=== PATIENT | male | born 1955 | race Caucasian/White ===

== ENCOUNTER → 2019-08-15 15:25 | Outpatient (CLI) | payer MEDICARE ==
[~2019-08-15 15:25] MED LIST: COZAAR50 MG PO; GENVOYA TAB; LEXAPRO20 MG PO; LIPITOR20 MG PO; POTASSIUM99 M1 PO; WELLBUTRIN SR150 MG PO
[2019-09-24 12:19] VITALS: BMI 37.3
== END | disposition home or self-care (01) ==
LOC: D.RT 15:25
PROVIDERS: ATTEND Nurse Practitioner Family
DX: R06.02 Shortness of breath (principal)

== ENCOUNTER 2019-09-24 10:12 | Day surgery (SDC) | payer MEDICARE ==
[~2019-09-24] VITALS: Ht 180.3 cm; Wt 121.4 kg
[2019-09-24 10:53] LABS: BASOPHILS 0.4 % (0-2); EOSINOPHILS 1.3 % (0-7); HEMATOCRIT 45.7 % (42.0-54.0); HEMOGLOBIN 15.5 g/dL (13.5-17.5); IMMATURE GRANULOCYTES 0.3 % (0-5); LYMPHOCYTES 34.6 % (15-50); MCH 31.6 pg (26.0-34.0); MCHC 33.9 g/dL (31.0-37.0); MCV 93.3 fL (80.0-100.0); MONOCYTES 8.9 % (2-11); NEUTROPHILS 54.5 % (40-80); PLATELET COUNT 296 10x3/uL (130-400); RDW 13.2 % (11.5-14.5); WBC 6.7 10x3/uL (4.8-10.8)
[2019-09-24] MEDS ORDERED: COZAAR50 MG PO (11:54)
[2019-09-24] MEDS ORDERED: LIPITOR20 MG PO (11:54)
[2019-09-24] MEDS ORDERED: LEXAPRO20 MG PO (11:55)
[2019-09-24] MEDS ORDERED: WELLBUTRIN SR150 MG PO (11:55)
[2019-09-24] MEDS ORDERED: POTASSIUM99 M1 PO (11:56)
[2019-09-24] MEDS ORDERED: GENVOYA TAB (11:56)
[2019-09-24 12:19] VITALS: BP 126/72; Ht 180.3 cm; Wt 121.4 kg
--- NOTE | 2019-10-01 19:09 | OP ---
PATIENT NAME: RL WALKER MEDICAL RECORD: [id number] :53 LOCATION:D[facility] ADMISSION DATE: SURGEON: MATT COVINGTON DO DATE OF OPERATION: 09/24/2019 PROCEDURE: Colonoscopy with polypectomy. INDICATIONS FOR PROCEDURE: Screening for colorectal cancer with a history of polyps. SCOPE: Sift video pediatric colonoscope. MEDICATIONS: Propofol 400 mg IV per anesthesia. WITHDRAWAL TIME: 23 minutes. ESTIMATED BLOOD LOSS: Minimal. COMPLICATIONS: None. FINDINGS: Informed consent was given. The patient was made comfortable with the above medication. After reaching an adequate level of sedation by slow IV push, the patient was placed on his left side. A digital rectal examination was performed and was normal. The endoscope was then advanced under direct visualization through the rectum to the cecum, confirmed by the presence of the appendiceal orifice and ileocecal valve. The endoscope was slowly withdrawn. Mucosa was carefully examined. Prep quality was good. There were 2 polyps visualized on today's examination. The first was a benign appearing sessile polyp that measured approximately 4-5 mm in diameter. It was located in the ascending colon. It was removed using a hot snare in 1 piece and completely retrieved. In the descending colon, there was another small benign appearing sessile polyp, which measured approximately 3-4 mm in diameter. It was removed using a hot forcep. There was evidence of [id number] diverticulosis involving the descending and sigmoid colon with a few scattered diverticula throughout the transverse and ascending colon. Retroflexion was performed in the rectum with visualization of grade I internal hemorrhoids without bleeding. The endoscope was withdrawn from the patient. The patient tolerated the procedure well and there were no complications. IMPRESSION: 1. Zpwc-na-mqjuborn diverticulosis mainly focused in the descending and sigmoid colon with a few scattered diverticula throughout the transverse and ascending colon. 2. Grade I internal hemorrhoids without bleeding. 3. Two benign-appearing sessile polyps as described above, removed using a combination of hot snare and hot forceps. PLAN AND RECOMMENDATIONS: 1. Discharge home when recovery parameters are met. 2. Follow up biopsy specimen results. 3. High fiber diet. 4. Continue current medications. 5. Recall colonoscopy in 5 years. TRANSINT:[id number] Voice Confirmation ID: [id number] DOCUMENT ID: [id number] OPERATIVE REPORT [id number] RL WALKERMATT ALSTON DO at 1909 CC: [id number] DICTATION DATE: 09/24/19 1339 [facility] MIXER: 09/24/19 2310 [facility] 09/24/19 [id number] [place] [address]
== END 2019-09-24 14:21 | disposition home or self-care (01) ==
LOC: D.OPS 10:12
PROVIDERS: Anesthesiology; ATTEND Internal Medicine Gastroenterology
DX: K63.5 Polyp of colon (principal); Z12.11 Encounter for screening for malignant neoplasm of colon; Z86.010 Personal history of colon polyps